=== PATIENT | female | born 1945 | race Caucasian/White ===

== ENCOUNTER 2024-02-24 12:15 | Emergency (ER) | payer MEDICARE ==
[~2024-02-24] VITALS: Ht 152.4 cm; Wt 65.3 kg
[2024-02-24 12:31] VITALS: TEMP 97.8
[2024-02-24] MEDS ORDERED: HYDROCODONE/APAP 5/325MG TABLET ONE (13:04)
[2024-02-24] MEDS: HYDROCODONE/APAP 5/325MG TABLET PO ONE (13:06)
[2024-02-24] MEDS ORDERED: HYDR-3980 PO (13:46)
[2024-02-24 14:00] VITALS: BP 120/68; O2SAT 100
== END 2024-02-24 13:50 | disposition home or self-care (01) ==
LOC: ER 12:25
DX: S80.12XA Contusion of left lower leg, initial encounter (principal); S60.222A Contusion of left hand, initial encounter; M25.532 Pain in left wrist; M79.641 Pain in right hand; M79.642 Pain in left hand; M79.661 Pain in right lower leg; M79.662 Pain in left lower leg; M19.90 Unspecified osteoarthritis, unspecified site; Z88.8 Allergy status to other drugs, medicaments and biological substances; X58.XXXA Exposure to other specified factors, initial encounter; Y93.89 Activity, other specified; Y92.89 Other specified places as the place of occurrence of the external cause; Y99.8 Other external cause status